=== PATIENT | female | born 1985 | race Caucasian/White ===

== ENCOUNTER 2016-12-04 09:04 | Outpatient (CLI) | payer OTHER ==
[2016-12-04] MEDS ORDERED: ADVIL200 M1 PO (11:14)
[2016-12-05] MEDS ORDERED: PERCOCET1 TA1 PO (12:36)
== END 2016-12-04 23:00 ==
LOC: LAB SRH 09:04
DX: Z01.818 Encounter for other preprocedural examination (principal); Z01.812 Encounter for preprocedural laboratory examination; Z30.09 Encounter for other general counseling and advice on contraception
CPT/HCPCS: 90001; 90004; 90047; 90074; 90155; 90364; 91004; 92863; 95059; 98428

== ENCOUNTER 2016-12-05 07:37 | Day surgery (SDC) | payer OTHER ==
[~2016-12-05] VITALS: Ht 154.9 cm; Wt 87.7 kg
[~2016-12-05 07:37] MED LIST: ADVIL200 M1 PO
--- NOTE | 2016-12-05 08:07 | NUR ---
PREOP INSTRUCTIONS GIVEN TO PATIENT. QUESTIONS ANSWERED. PATIENT VERBALIZES UNDERSTANDING. CONSENT CONFIRMED. NO PREOP MEDICATIONS GIVEN. SCDs ON. PATIENT RESTING COMFORTABLY. IN ROOM. KB
[2016-12-05] MEDS ORDERED: PERCOCET1 TA1 PO (12:36)
--- NOTE | 2016-12-05 12:38 | Provider's Discharge Care Plan ---
Problem, Goal, Plan Problem List 1. Post-op pain Goals: Improve disease control Instructions: Follow up as needed
--- NOTE | 2016-12-05 12:38 | Provider's Discharge Care Plan ---
Problem, Goal, Plan Problem List 1. Post-op pain Goals: Improve disease control Instructions: Follow up as needed
--- NOTE | 2016-12-05 12:39 | NUR ---
PT RECEIVED TO PACU SEDATED, NOT YET RESPONDING TO VOICE. VSS. PLACED ON O2 BY ANESTHESIA PROVIDER.
--- NOTE | 2016-12-05 12:40 | Provider's Discharge Care Plan ---
Problem, Goal, Plan Problem List 1. Post-op pain Goals: Improve disease control Instructions: Follow up as needed
--- NOTE | 2016-12-05 12:40 | Provider's Discharge Care Plan ---
Problem, Goal, Plan Problem List 1. Post-op pain Goals: Improve disease control Instructions: Follow up as needed
--- NOTE | 2016-12-05 13:12 | NUR ---
PT EASILY AROUSES TO VOICE. REPORTS 4-5/10 ABDOMINAL BURNING PAIN AND REPORTS PAIN GETTING WORSE. MEDICATED WITH FENTANYL IV FOR PAIN. DENIES NAUSEA. VSS. WARM BLANKET TO ABDOMEN FOR COMFORT AND SPLINTING.
--- NOTE | 2016-12-05 13:19 | NUR ---
PT AWAKE AND COMFORTABLE. CHIEF COMPLAINT IS FEELING THIRSTY AND HUNGRY. PAIN NOW REPORTED 2/10.
--- NOTE | 2016-12-05 13:30 | NUR ---
PATIENT RETURNED TO THE FLOOR SLEEPY, BUT AROUSABLE. DENIES PAIN AND NAUSEA. ICE CHIPS OFFFERED. KB
--- NOTE | 2016-12-05 14:39 | OPERATIVE REPORT ---
DATE OF SURGERY: 12/05/2016 SURGEON: Andrei Lopez MD POTTERY DECORATION DESIGNER: None. PREOPERATIVE DIAGNOSIS: 1. Multiparity, voluntary sterilization POSTOPERATIVE DIAGNOSIS: 1. Multiparity, voluntary sterilization PROCEDURE PERFORMED: 1. Triple puncture operative laparoscopy, 11 mm subumbilical, two 5 mm lateral ports ANESTHESIA: General endotracheal, Mandy, COMMODITY MANAGER, 20 ml subcutaneous 0.5% bupivacaine and 1:200,000 epinephrine. SURGICAL FINDINGS: Normal, see 3 pictures. COMPLICATIONS: None. CONDITION: Good. ESTIMATED BLOOD LOSS: Less than 5 mL. FLUIDS: See anesthesia. DRAINS: See anesthesia. No blood, no grafts, no implants. PATHOLOGY SPECIMEN: Tissue removed was the majority of the salpinx including the fimbria bilaterally, separate specimens. SURGICAL TECHNIQUE: The patient was prepped and draped in the usual fashion. A time-out was performed. No antibiotics were given, 20 mL was placed in 3 subcutaneous sites, 0.5% bupivacaine. A scalpel was used to make the initial incision and CO2 was insufflated with a Veress needle, 2 liters, 11 mm placed without difficulty. Two 5s were placed with no difficulty. The grasper was used after visualization with Trendelenburg. The right salpinx fimbria was identified and the Thunderbeat was used to separate the fimbria down to the ampullary region. The dissection was stopped and cautery was performed over a 1.5 cm area and 3 cauterization spots. The opposite side was done the same way, the fimbria down to avoid the ovarian blood supply and within 1-2 cm of the ampullary region , it was cauterized with the ampullary part and dissected, these were both removed through the 5 mm port on the left side. Separate specimens. The ports were removed under visualization and CO2 was insufflated. One [id number] was placed in the 11 mm port deep in the incision site, [id number]. Good reapproximation with Steri-Strips. Sponge, needle, tape and instrument count was correct x2. The patient tolerated the procedure well and went to the recovery room. The patient was to be discharged home later today with 20 of Percocet. Warnings and precautions given.
--- NOTE | 2016-12-05 14:39 | OPERATIVE REPORT ---
DATE OF SURGERY: 12/05/2016 SURGEON: Andrei Lopez MD INSURANCE VERIFY REP: None. PREOPERATIVE DIAGNOSIS: 1. Multiparity, voluntary sterilization POSTOPERATIVE DIAGNOSIS: 1. Multiparity, voluntary sterilization PROCEDURE PERFORMED: 1. Triple puncture operative laparoscopy, 11 mm subumbilical, two 5 mm lateral ports ANESTHESIA: General endotracheal, Mandy, MOVING CONSULTANT, 20 ml subcutaneous 0.5% bupivacaine and 1:200,000 epinephrine. SURGICAL FINDINGS: Normal, see 3 pictures. COMPLICATIONS: None. CONDITION: Good. ESTIMATED BLOOD LOSS: Less than 5 mL. FLUIDS: See anesthesia. DRAINS: See anesthesia. No blood, no grafts, no implants. PATHOLOGY SPECIMEN: Tissue removed was the majority of the salpinx including the fimbria bilaterally, separate specimens. SURGICAL TECHNIQUE: The patient was prepped and draped in the usual fashion. A time-out was performed. No antibiotics were given, 20 mL was placed in 3 subcutaneous sites, 0.5% bupivacaine. A scalpel was used to make the initial incision and CO2 was insufflated with a Veress needle, 2 liters, 11 mm placed without difficulty. Two 5s were placed with no difficulty. The grasper was used after visualization with Trendelenburg. The right salpinx fimbria was identified and the Thunderbeat was used to separate the fimbria down to the ampullary region. The dissection was stopped and cautery was performed over a 1.5 cm area and 3 cauterization spots. The opposite side was done the same way, the fimbria down to avoid the ovarian blood supply and within 1-2 cm of the ampullary region , it was cauterized with the ampullary part and dissected, these were both removed through the 5 mm port on the left side. Separate specimens. The ports were removed under visualization and CO2 was insufflated. One [id number] was placed in the 11 mm port deep in the incision site, [id number]. Good reapproximation with Steri-Strips. Sponge, needle, tape and instrument count was correct x2. The patient tolerated the procedure well and went to the recovery room. The patient was to be discharged home later today with 20 of Percocet. Warnings and precautions given.
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
[2016-12-05 15:13] VITALS: BP 110/52
--- NOTE | 2016-12-05 15:14 | NUR ---
PATIENT UP IN ROOM INDEPENDENTLY. DISCHARGE INSTRUCTIONS GIVEN TO PATIENT. QUESTIONS ANSWERED. PATIENT VERBALIZES UNDERSTANDING. WILL DISCHARGE HOME WITH HER . TOI
--- NOTE | 2016-12-05 15:34 | NUR ---
CEPACOL GIVEN FOR SORE THROAT. DISCHARGED HOME. KB
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
== END 2016-12-05 15:31 | disposition home or self-care (01) ==
LOC: OR SRH 07:37 → SCU SRH 07:39 → OR SRH 09:30
PROVIDERS: Obstetrics & Gynecology
PROC: 0UT74ZZ Resection of Bilateral Fallopian Tubes, Percutaneous Endoscopic Approach (ICD-10-PCS; principal; 2016-12-05 09:30)
DX: Z30.2 Encounter for sterilization (principal)
CPT/HCPCS: 29229; 29240; 50002; 60001; 70002; 80102; 80212; 82504; 82897; 83587; 83982; 84038